=== PATIENT | male | born 1955 | race African-American/Black ===

== ENCOUNTER 2017-12-27 21:41 | Emergency (ER) | payer BC | END 2017-12-27 22:40 | disposition home or self-care (01) | LOC: NAV ERS 21:41 | DX: R19.7 Diarrhea, unspecified (principal); E78.5 Hyperlipidemia, unspecified; I10 Essential (primary) hypertension; Z87.891 Personal history of nicotine dependence; Z85.038 Personal history of other malignant neoplasm of large intestine; Z79.899 Other long term (current) drug therapy | CPT/HCPCS: 99283 ==